=== PATIENT | female | born 1985 | race Caucasian/White ===

== ENCOUNTER 2017-04-28 16:48 | Emergency (ER) | payer SELFPAY ==
[2017-04-28 17:35] LABS: BASOPHIL % 0.5 % (0-2); PLATELET COUNT 231 x10^3mcL (130-400)
[2017-04-28 17:44] LABS: UA SPECIFIC GRAVITY <=1.005 (1.005-1.035); microscopic required? YES; urine erythrocyte TRACE (NEGATIVE)
[2017-04-28 17:49] LABS: CARBON DIOXIDE 28.6 mmol/L (21-32); CHLORIDE SERUM 104 mmol/L (98-107); CREATININE SERUM 0.8 mg/dL (0.6-1.0); GFR1 > 60 mL/min; GLUCOSE SERUM 113 mg/dL (74-106); POTASSIUM SERUM 3.9 mmol/L (3.5-5.1); SODIUM SERUM 141 mmol/L (136-145)
[2017-04-28 17:52] LABS: ALBUMIN 3.6 g/dL (3.4-5.0); ALKALINE PHOSPHATASE 57 U/L (46-116); ALT/SGPT 28 U/L (14-59); AST/SGOT 21 U/L (15-37); BILIRUBIN TOTAL 0.33 mg/dL (0.20-1.00); LIPASE 202 IU/L (73-393); TOTAL PROTEIN, SERUM 7.5 g/dL (6.4-8.2)
[2017-04-28 18:26] VITALS: BP 108/37
== END 2017-04-28 19:28 | disposition home or self-care (01) ==
LOC: ED 16:48
PROVIDERS: Emergency Medicine
DX: K80.50 Calculus of bile duct without cholangitis or cholecystitis without obstruction (principal)
CPT/HCPCS: 83880; J1885; J2405; J7030; Q0092